=== PATIENT | female | born 1960 | race Caucasian/White ===

== ENCOUNTER 2020-06-13 12:00 | Outpatient (RCR) | payer OTHER ==
[~2020-06-13] VITALS: Ht 162.6 cm; Wt 57.7 kg
[2020-06-13] MEDS ORDERED: CETI10TA49 PO (12:20)
[2020-06-13] MEDS ORDERED: LEVO25TA5 PO (12:20)
== END 2020-06-13 12:27 | disposition home or self-care (01) ==
LOC: PREOP 12:00
PROVIDERS: ATTEND Surgery
DX: Z01.818 Encounter for other preprocedural examination (principal)

== ENCOUNTER → 2020-06-14 | Outpatient (CLI) | payer OTHER ==
[~2020-06-14] MED LIST: CETI10TA49 PO; LEVO25TA5 PO
== END ==
LOC: LAB FS 07:13
PROVIDERS: ATTEND Surgery
DX: Z01.812 Encounter for preprocedural laboratory examination (principal); Z20.828 Contact with and (suspected) exposure to other viral communicable diseases; Z86.010 Personal history of colon polyps
CPT/HCPCS: 87635

== ENCOUNTER 2020-06-17 11:53 | Day surgery (SDC) | payer OTHER ==
[2020-06-17] VITALS (12 sets, daily range): BP systolic 103–131; BP diastolic 74–85
[~2020-06-17] VITALS: Ht 162.6 cm; Wt 57.7 kg
[2020-06-17] MEDS ORDERED: LACTATED RINGERS 1,000 ML IV ONE (11:58)
[2020-06-17] MEDS ORDERED: LACTATED RINGERS 1,000 ML IV STA (12:00)
[2020-06-17] MEDS ORDERED: MIDAZOLAM 2 MG/2 ML (VERSED) VIAL ONE (12:24)
[2020-06-17] MEDS ORDERED: PROPOFOL INJECTION 50 ML IV ONE (12:25)
--- NOTE | 2020-06-17 13:41 | Progress Note-Pre Operative ---
Pre-Operative Progress Note H&P Reviewed The H&P was reviewed, patient examined and no changes noted. Time Seen by Provider: 13:37 Date H&P Reviewed: Jun 17, 2020 Time H&P Reviewed: 13:36 Pre-Operative Diagnosis: Hx of colon polyps GREG KNOWLES DO Jun 17, 2020 13:41
--- NOTE | 2020-06-17 14:25 | Progress Note-Post Operative ---
Post-Operative Progess Note Surgeon (s)/Filler Room Attendant (s) Surgeon GREG KNOWLES DO Filler Room Attendant: PAULA Saucedo Pre-Operative Diagnosis Hx of colon polyps Post-Operative Diagnosis Diverticula int hemorrhoids Procedure & Operative Findings Date of Procedure 06/17/20 Procedure Performed/Findings colonoscopy Anesthesia Type IV sedation by INTERVENTIONAL NEURORADIOLOGIST Estimated Blood Loss Estimated blood loss (mL): scant Specimens/Packing Specimens Removed none GREG KNOWLES DO Jun 17, 2020 14:25
--- NOTE | 2020-06-17 14:26 | Endoscopy Discharge Instruct ---
Endo Procedure/Findings Findings 1.: Diverticulosis 2.: Internal Hemorrhoids Discharge Instructions - Activity: You might feel a little sleepy until tomorrow. This is due to the medicine you received to relax you. Until tomorrow, you should: NOT drive a car, operate machinery or power tools. NOT drink any alcoholic beverages. NOT make any important decisions or sign importortant papers. Do not return to work until tomorrow, unless otherwise instructed. Resume previous activities tomorrow. Diet: Start by taking liquids. If you tolerate liquids, advance to solid food. 1.: Colonscopy in 10 years Notify Physician - If you experience excessive bleeding, unusual abdominal pain, fever, or chest pain, contact your doctor immediately. GREG KNOWLES DO Jun 17, 2020 14:26
--- NOTE | 2020-06-17 23:22 | OPERATIVE REPORT ---
DATE OF SERVICE: 06/17/2020 PREOPERATIVE DIAGNOSIS: History of colon polyps. POSTOPERATIVE DIAGNOSES: Diverticula, internal hemorrhoids. PROCEDURE: Colonoscopy. SURGEON: Javad Higginbotham DO DIRECTOR TALENT: ÁLVARO Saucedo. ANESTHESIA: IV sedation by the HISTORICAL SOCIETY DIRECTOR. SPECIMENS: None. BLOOD LOSS: None. FLUIDS: Per anesthesia. POSTOPERATIVE CONDITION: Stable. INDICATION FOR PROCEDURE: The patient is a 59-year-old female who has a history of colon polyps and needs a workup. FINDINGS: The patient had diverticula and internal hemorrhoids. PROCEDURE NOTE: After informed consent was obtained, the patient was brought to the endoscopy suite, placed in bed in left lateral decubitus position. She was administered IV sedation by the HISTORICAL SOCIETY DIRECTOR who then monitored her vitals the entire time, heart rate, blood pressure and pulse ox and the scope was inserted, pushed all the way into about 140 cm, able to get all the way to cecum, took a picture of appendiceal orifice, noted the ileocecal valve and then slowly withdrew the scope insufflating to look circumferentially at the [place] looking the cecum, up the ascending colon to the hepatic flexure, then down the transverse colon, splenic flexure, into the descending colon, then down to the sigmoid and finally into the rectum. There throughout the sigmoid and descending colon, she had a lot of diverticula. She actually had a couple on the right side as well and then once we were in the rectum, retroflexed in the rectal vault and saw some minimal internal hemorrhoids, took a picture and then removed the scope. The patient tolerated the procedure. She was recovered in endoscopy suite. Job ID: [id number] DocumentID: [id number] Dictated Date: 06/17/2020 14:55:41 Telecasting Technician Date: 06/17/2020 23:21:36 Dictated By: JAVAD HIGGINBOTHAM DO
== END 2020-06-17 15:00 | disposition home or self-care (01) ==
LOC: ENDO 11:53
PROVIDERS: ATTEND Surgery
DX: K64.8 Other hemorrhoids (principal); K57.30 Diverticulosis of large intestine without perforation or abscess without bleeding; K21.9 Gastro-esophageal reflux disease without esophagitis; E03.9 Hypothyroidism, unspecified; Z79.899 Other long term (current) drug therapy; Z88.1 Allergy status to other antibiotic agents; Z86.010 Personal history of colon polyps; Z82.49 Family history of ischemic heart disease and other diseases of the circulatory system